=== PATIENT | male | born 2000 | race Caucasian/White ===

== ENCOUNTER 2023-04-22 06:49 | Outpatient (CLI) | payer OTHER ==
--- NOTE | 2023-04-22 20:27 | Ultrasound Report ---
PROCEDURE: Abdomen Complete INDICATIONS: CHEST PAIN TECHNIQUE: Real-time scanning was performed of the abdominal and retroperitoneal organs, with image documentatio n. COMPARISON: None. FINDINGS: Liver: Liver is normal in size and homogeneous in echotexture. Main portal vein is patent with hepat opedal flow. Gallbladder: Unremarkable. Biliary ducts: Intrahepatic bile ducts are non-dilated. Extrahepatic bile duct caliber measures 2 m m. Normal is 6-7 mm or less in diameter, or 10 mm or less post-cholecystectomy. Pancreas: Visualized portions of the pancreas are sonographically normal. Spleen: Spleen is borderline enlarged measuring 13.8 cm and homogeneous in echotexture. Kidneys: Kidneys are normal in size and echotexture. Right kidney measures 10.9 cm long; left kidne y measures 10.2 cm long. No hydronephrosis or nephrolithiasis. No solid masses. No complex renal cy stic lesions which require follow-up. Aorta: Visualized aorta is normal in caliber at less than 3 cm. Iliacs: Proximal common iliac arteries are normal in caliber at less than 2.5 cm. IVC: Intrahepatic inferior vena cava is patent. Miscellaneous: No free abdominal fluid. IMPRESSION: 1.Spleen is borderline enlarged measuring 13.8 cm. 2.Otherwise, abdominal ultrasound is normal. Reviewed by: Fabi Rubio MD on 04/22/2023 8:26 PM PDT Approved by: Fabi Rubio MD on 04/22/2023 8:26 PM PDT Station ID: [id number]
== END 2023-04-22 06:50 | disposition home or self-care (01) ==
LOC: DI 06:49
PROVIDERS: ATTEND General Practice
DX: R16.1 Splenomegaly, not elsewhere classified (principal)